=== PATIENT | female | born 1980 | race Caucasian/White ===

== ENCOUNTER 2017-07-27 19:54 | Emergency (ER) | END 2017-07-27 20:20 | disposition home or self-care (01) ==

== ENCOUNTER 2018-11-20 15:58 | Emergency (ER) | payer OTHER ==
[~2018-11-20] VITALS: Ht 157.5 cm; Wt 60.6 kg
[~2018-11-20 15:58] MED LIST: AZIT250T PO; BENZ-6 PO; CALC600T PO; CETI10CA PO; FERR-55 PO; FERR27TA PO; IBUP-1542 PO; PREN-47 PO; PREN1TAB31 PO; PRENAT PO
[2018-11-20 16:14] VITALS: BP 125/70; PULSE 79; RESP 20; Ht 157.5 cm; Wt 60.6 kg
[2018-11-20] MEDS ORDERED: LIDOCAINE/MYLANTA 40 ML BTL PO ONE (17:00)
[2018-11-20] MEDS ORDERED: RANITIDINE 150 MG TAB PO ONE (17:00)
[2018-11-20] MEDS ORDERED: OMEP20CA16 PO (17:38)
[2018-11-20] MEDS ORDERED: RANI150T35 PO (17:38)
--- NOTE | 2018-11-20 19:47 | ERD ---
ER Documentation Chief Complaint Chief Complaint c/o abdominal pain x2 days, diarhea started yesterday HPI This is a pleasant 38-year-old female presenting to the emergency department complaining of midepigastric pain which she describes as a sharp sensation intermittently for the past 2 days after eating meatball soup. She does have history of GERD and states these current symptoms are similar to prior episodes. She denies any pain at this time. She has had no nausea or vomiting but does admit to 4 episodes of nonbloody diarrhea today. She tried Tylenol at home with some relief. She does eat spicy foods at times which exacerbate her symptoms. She denies any lower abdominal pain, fevers, chills, or other symptoms at this time. ROS All systems reviewed and are negative except as per history of present illness. Medications Home Meds Active Scripts Ranitidine Hcl* (Zantac*) 150 Mg Tablet, 150 MG PO BID PRN for EPIGASTRIC PAIN, #30 TAB Prov:ELEONORA NELSON PA-C 11/20/18 Omeprazole* (Omeprazole*) 20 Mg Capsule.dr, 20 MG PO DAILY, #10 Prov:ELEONORA NELSON PA-C 11/20/18 Cetirizine Hcl* (Zyrtec*) 10 Mg Capsule, 10 MG PO DAILY, #30 TAB.CHEW Prov:ALECIA RUSH NP 07/27/17 Ibuprofen* (Motrin*) 600 Mg Tab, 600 MG PO Q6H PRN for PAIN AND OR ELEVATED TEMP, #30 TAB Prov:ALECIA RUSH NP 07/27/17 Azithromycin* (Zithromax*) 250 Mg Tablet, 250 MG PO .RheaPACK DIRECTED, #6 TAB TAKE 500 MG (2 TABS) THE FIRST DAY THEN 250 MG (1 TAB) DAYS 2-5 Prov:ALECIA RUSH NP 07/27/17 Benzonatate* (Tessalon Perle*) 100 Mg Capsule, 100 MG PO Q8H PRN for COUGH, #20 CAP Prov:ALECIA RUHS NP 07/27/17 Reported Medications Multivit/Min/Fol Ac/Iron/Pren* ( S*) 1 Tab Tab, 1 TAB PO DAILY, TAB 08/31/14 Ferrous Sulfate* (Ferrous Sulfate*) 325 Mg Tablet, 325 MG PO BID 08/01/13 Vits #90-Iron Fum-FA ( Formula) 1 Each Tablet, 1 EACH PO DAILY 08/01/13 Calcium Carbonate (Maximino-600) 600 Mg Tablet, 600 MG PO DAILY 07/14/13 Htd99-Yuic-Jytzc Acid (Prenata Chewable) 1 Each Tab.chew, 1 EACH PO DAILY, TAB.CHEW 07/14/13 Ferrous Sulfate (Iron) 1 Tab Tablet, 1 TAB PO BID 03/19/12 Allergies Allergies: Coded Allergies: No Known Drug Allergy (Verified Allergy, Unknown, 11/27/06) PMhx/Soc History of Surgery: No Anesthesia Reaction: No Hx Neurological Disorder: No Hx Respiratory Disorders: No Hx Cardiac Disorders: No Hx Psychiatric Problems: No Hx Miscellaneous Medical Probl: Yes (Gastritis) Hx Alcohol Use: No Hx Substance Use: No Hx Tobacco Use: No Smoking Status: Never smoker FmHx Family History: No diabetes Physical Exam Vitals Vital Signs Date Temp Pulse Resp B/P (MAP) Pulse Ox O2 O2 Flow FiO2 Time Delivery Rate 11/20/18 99.2 79 20 125/70 99 16:14 (88) Physical Exam Const: No acute distress Head: Atraumatic Eyes: Normal Conjunctiva ENT: Normal External Ears, Nose and Mouth. Neck: Full range of motion. No meningismus. Resp: Clear to auscultation bilaterally Cardio: Regular rate and rhythm, no murmurs Abd: Soft, non tender, non distended. Normal bowel sounds. No rebound tenderness or guarding. No McBurney's point tenderness. Skin: No petechiae or rashes Back: No midline or flank tenderness Ext: No cyanosis, or edema Neur: Awake and alert Psych: Normal Mood and Affect Results 24 hrs Current Medications Medications Dose Sig/Shea Start Time Status Last (Trade) Ordered Route PRN Stop Time Admin Dose Reason Admin 40 ml ONCE ONCE 11/20/18 DC 11/20/18 Miscellaneous PO 17:00 17:13 Medication 11/20/18 17:01 (Gi Cocktail (2)) Ranitidine 150 mg ONCE ONCE 11/20/18 DC 11/20/18 HCl PO 17:00 17:13 (Zantac) 11/20/18 17:01 Procedures/MDM 38-year-old female is presenting to the emergency department with signs and symptoms most consistent with GERD. Patient's abdominal examination was benign. She had a negative Johnson sign. No McBurney's point tenderness. No rebound tenderness or guarding. Vital signs are stable. She is afebrile. She is nontoxic and well-appearing. Patient was significantly improved after admini stration of ranitidine and GI cocktail. For these reasons, I do not feel that further work-up is indicated. Patient stated she was improved and is comfortable with discharge and further outpatient management at this time. No evidence of esophageal rupture, acute surgical abdomen, cholecystitis, pain ascites, or other emergencies. Patient advised to have 24 to 48-hour follow-up with her primary care physician and return here immediately for any new, worsening, or concerning symptoms. I shared my medical decision making with the patient and she understands and agrees with the plan. Departure Diagnosis: Primary Impression: Epigastric pain Condition: Fair Patient Instructions: Gerd (Adult) [facility] Usted se headley hecho un examen mdico de control que le indica que no est en louisa condicin que requiera tratamiento urgente en el Departamento de Emergencia. Un estudio ms profundo y el tratamiento de laureano condicin pueden esperar sin ningn riesgo hasta que usted sea atendida/o en el consultorio de laureano mdico o louisa clnica. Es responsabilidad suya arreglar louisa shawna para el seguimiento del dina. MANEJO DE CONDICIONES NO URGENTES EN EL FUTURO 1) Si usted tiene un mdico de atencin primaria: Usted debera llamar a laureano mdico de atencin primaria antes de venir al departamento de emergencia. Despus de las horas de consultorio, laureano doctor o laureano asociado/a est disponible por telfono. El mdico o enfermero de airam en el servicio telefnico puede asesorarle por rajesh medio para atender el problema, o dina contrario se puede programar louisa shawna. 2) Si usted no tiene un mdico de atencin primaria: Llame al mdico o clnica de referencia que aparece abajo loraine las horas de consultorio para hacer louisa shawna para que le vean. CLINICAS: [facility] [phone] [facility] [phone] [facility] [phone] [place] [phone] [place] [address] [phone] [facility]. [phone] [address] Additional Instructions: Llame al doctor MAANA y omer louisa SHAWNA PARA DENTRO DE 1-2 SALAZAR.Dgale a la secretaria que nosotros le instruimos hacer esta shawna.Avise o llame si laureano condicin se empeora antes de la shawna. Regresa aqui si peor o no mejor. ELEONORA NELSON PA-C Nov 20, 2018 19:47
== END 2018-11-20 17:52 | disposition home or self-care (01) ==
LOC: FTE 15:58
DX: R10.13 Epigastric pain (principal)
CPT/HCPCS: Z7502; Z7610; 99282